=== PATIENT | female | born 1995 | race African-American/Black ===

== ENCOUNTER 2017-12-27 10:07 | Emergency (ER) | payer MEDICAID ==
[~2017-12-27] VITALS: Ht 167.6 cm; Wt 77.3 kg
[2017-12-27 10:18] VITALS: BP 113/90
== END 2017-12-27 11:47 | disposition home or self-care (01) ==
LOC: ER 11:09
DX: L01.00 Impetigo, unspecified (principal); B00.1 Herpesviral vesicular dermatitis
CPT/HCPCS: 99283

== ENCOUNTER 2019-11-26 13:15 | Emergency (ER) | payer MEDICAID ==
[~2019-11-26] VITALS: Ht 167.6 cm; Wt 100.0 kg
[2019-11-26 16:01] VITALS: BP 129/86
== END 2019-11-26 16:05 | disposition home or self-care (01) ==
LOC: ER 13:15
DX: L01.00 Impetigo, unspecified (principal)
CPT/HCPCS: 99281

== ENCOUNTER 2020-07-06 19:39 | Emergency (ER) | payer MEDICAID ==
[~2020-07-06] VITALS: Ht 167.6 cm; Wt 93.1 kg
[2020-07-06] MEDS ORDERED: IBUPROFEN 600MG TABLET PO STA (20:55)
[2020-07-06] MEDS ORDERED: PENICILLIN G BENZATHINE 1,200,000 UNITS/2ML SYR IM ONE (21:00)
[2020-07-06 22:15] VITALS: BP 119/71
== END 2020-07-06 22:10 | disposition home or self-care (01) ==
LOC: ER 19:39
DX: J02.9 Acute pharyngitis, unspecified (principal)
CPT/HCPCS: 93005; 96372; 99283; J0561

== ENCOUNTER 2020-10-18 11:48 | Emergency (ER) | payer MEDICAID ==
[~2020-10-18] VITALS: Ht 167.6 cm; Wt 99.7 kg
[2020-10-18 13:30] VITALS: BP 122/76
== END 2020-10-18 13:30 | disposition home or self-care (01) ==
LOC: ER 11:48
DX: Z03.818 Encounter for observation for suspected exposure to other biological agents ruled out (principal); J02.9 Acute pharyngitis, unspecified; R05 Cough; R50.9 Fever, unspecified
CPT/HCPCS: 87070; 87430; 87635; 99283; C9803